=== PATIENT | female | born 1960 | race Caucasian/White ===

== ENCOUNTER 2022-01-30 14:52 | Inpatient (IN) | payer OTHER ==
[~2022-01-30] VITALS: Ht 165.1 cm; Wt 71.7 kg
[2022-01-30] MEDS ORDERED: DEXTROSE 50%-WATER 25 GM/50 ML SYRINGE IVP PRN (17:30)
[2022-01-30] MEDS ORDERED: INSULIN LISPRO 100 UNITS/ML SQ PRN (17:30)
[2022-01-30] MEDS ORDERED: ACETAMINOPHEN 650 MG/20.3 ML SOLUTION UDCUP PO PRN (17:45)
[2022-01-30 18:13] LABS: BASOPHILS % (AUTO) 0.6 % (0.0-2.0); EOSINOPHILS % (AUTO) 2.1 % (1.0-6.0); HEMATOCRIT 40.3 % (36-46); HEMOGLOBIN 13.8 g/dL (12.0-16.0); LYMPHOCYTES # (AUTO) 1.8 K/uL (1.0-4.8); LYMPHOCYTES % (AUTO) 24.4 % (22.0-44.0); MEAN CORPUSCULAR HEMOGLOBIN 32.4 pg (26.0-34.0); MEAN CORPUSCULAR HGB CONC 34.2 G/dL (31.0-37.0); MEAN CORPUSCULAR VOLUME 95 fL (80-100); MONOCYTES # (AUTO) 0.7 K/uL (0.1-1.0); MONOCYTES % (AUTO) 9.5 % (2.0-9.0); NEUTROPHILS # (AUTO) 4.8 K/uL (1.8-7.7); NEUTROPHILS % (AUTO) 63.4 % (40.0-70.0); PLATELET COUNT (AUTO) 208 K/uL (150-450); RED BLOOD CELL COUNT(AUTO) 4.27 MIL/uL (4.00-5.20); RED CELL DISTRIBUTION WIDTH 12.6 % (11.5-14.5)
[2022-01-30 18:32] LABS: ALANINE AMINOTRANSFERASE 56 U/L (12-78); ALBUMIN 3.3 g/dL (3.4-5.0); ALKALINE PHOSPHATASE 60 U/L (46-116); ANION GAP 9 mmol/L (8-16); ASPARTATE AMINOTRANSFERASE 15 U/L (15-37); BILIRUBIN,TOTAL 0.4 mg/dL (0.1-1.0); CALCIUM, TOTAL 8.8 mg/dL (8.8-10.5); CARBON DIOXIDE 25 mmol/L (22-29); CHLORIDE 103 mmol/L (98-107); CREATININE 0.79 mg/dL (0.60-1.30); GLOMERULAR FILTR. RATE CALC > 60 mL/min (>60); GLUCOSE,RANDOM 103 mg/dL (70-110); SODIUM SERUM 137 mmol/L (136-145); TOTAL PROTEIN, SERUM 6.6 g/dL (6.4-8.2); UREA NITROGEN, BLOOD 15 mg/dL (7-18)
[2022-01-30 19:48] VITALS: BP 128/67
[2022-01-30] MEDS: DOCUSATE SODIUM 100 MG CAPSULE PO SCH (20:04)
[2022-01-30] MEDS: SENNA 187 MG TABLET PO SCH (20:04)
[2022-01-30 20:12] VITALS: BP 133/89
[2022-01-30] MEDS: ACETAMINOPHEN 325 MG TABLET PO PRN (20:12)
[2022-01-30] MEDS ORDERED: PNEUMOCOCCAL VACCINE POLYVALENT 0.5 ML VIAL [PPSV23] IM. ONE (20:30)
[2022-01-30 20:31] LABS: GLUCOMETER DEV NAME(LOC) 2WR.2B; GLUCOSE,POINT OF CARE 104 MG/DL (70-110)
[2022-01-30] MEDS ORDERED: LACOSAMIDE 100 MG TABLET PO ONE (23:45)
[2022-01-30] MEDS ORDERED: LevETIRAcetam 500 MG TABLET PO ONE (23:45)
[2022-01-31 05:26] LABS: GLUCOMETER DEV NAME(LOC) 2WR.1C; GLUCOSE,POINT OF CARE 92 MG/DL (70-110)
[2022-01-31 06:46] LABS: GLUCOMETER DEV NAME(LOC) 2WR.2B; GLUCOSE,POINT OF CARE 108 MG/DL (70-110)
[2022-01-31] MEDS: ETHYL ALCOHOL 62% ANTISEPTIC NASAL SANITIZER 0.6 ML AMPUL NASAL SCH ×2 (08:26→20:30)
[2022-01-31] MEDS: DOCUSATE SODIUM 100 MG CAPSULE PO SCH ×2 (08:27→20:18)
[2022-01-31] MEDS: AmLODIPine BESYLATE 2.5 MG TABLET PO SCH (08:27)
[2022-01-31] MEDS: LevETIRAcetam 500 MG TABLET PO SCH ×2 (08:27→20:30)
[2022-01-31] MEDS: LACOSAMIDE 100 MG TABLET PO SCH ×2 (08:28→20:30)
[2022-01-31] MEDS: SERTRALINE HCL 100 MG TABLET PO SCH (08:29)
[2022-01-31] MEDS: ENOXAPARIN SODIUM 40 MG/0.4 ML PF SYRINGE SQ SCH (08:29)
[2022-01-31] MEDS: OMEPRAZOLE 20 MG CAPSULE PO SCH (08:29)
[2022-01-31] MEDS ORDERED: LACOSAMIDE 100 MG TABLET PO SCH (09:00)
[2022-01-31] MEDS ORDERED: OMEPRAZOLE 10 MG CAPSULE PO SCH (09:00)
[2022-01-31] MEDS ORDERED: LevETIRAcetam 500 MG TABLET PO SCH (09:00)
[2022-01-31 09:01] VITALS: BP 127/80
[2022-01-31 10:24] LABS: APPEARANCE,URINE CLEAR (CLEAR); BILIRUBIN,URINE NEGATIVE (NEGATIVE); GLUCOSE, URINE (UA) NEGATIVE (NEGATIVE); KETONES,URINE NEGATIVE (NEGATIVE); LEUKOCYTE ESTERASE ,URINE MODERATE (NEGATIVE); NITRATE,URINE NEGATIVE (NEGATIVE); OCCULT BLOOD,URINE NEGATIVE (NEGATIVE); PROTEIN,URINE NEGATIVE (NEGATIVE); SPECIFIC GRAVITIY, URINE 1.017 (1.003-1.030); UROBILINOGEN,URINE <=1.0 mg/dL (<=1.0)
[2022-01-31 10:58] LABS: BACTERIA,URINE Few /HPF (None Seen); RBC,URINE None Seen /HPF (0-2)
[2022-01-31 10:59] LABS: SQUAMOUS EPITHELIAL CELL,UR Moderate /LPF (None Seen)
[2022-01-31] MEDS: ACETAMINOPHEN 325 MG TABLET PO PRN ×2 (11:20→20:32)
[2022-01-31 19:55] VITALS: BP_SYST 121; BP_SYST 125; BP_DIAS 77; BP_DIAS 79
[2022-01-31] MEDS: SENNA 187 MG TABLET PO SCH (20:18)
[2022-02-01 07:01] LABS: GLUCOMETER DEV NAME(LOC) 2WR.1C; GLUCOSE,POINT OF CARE 88 MG/DL (70-110)
[2022-02-01 07:35] VITALS: BP 129/71
[2022-02-01] MEDS: ETHYL ALCOHOL 62% ANTISEPTIC NASAL SANITIZER 0.6 ML AMPUL NASAL SCH ×2 (07:51→20:24)
[2022-02-01] MEDS: DOCUSATE SODIUM 100 MG CAPSULE PO SCH ×2 (07:52→20:25)
[2022-02-01] MEDS: LevETIRAcetam 500 MG TABLET PO SCH ×2 (07:53→20:24)
[2022-02-01] MEDS: AmLODIPine BESYLATE 2.5 MG TABLET PO SCH (07:54)
[2022-02-01] MEDS: OMEPRAZOLE 20 MG CAPSULE PO SCH (07:54)
[2022-02-01] MEDS: LACOSAMIDE 100 MG TABLET PO SCH ×2 (07:54→20:27)
[2022-02-01] MEDS: SERTRALINE HCL 100 MG TABLET PO SCH (07:55)
[2022-02-01] MEDS: ENOXAPARIN SODIUM 40 MG/0.4 ML PF SYRINGE SQ SCH (07:55)
[2022-02-01] MEDS: ACETAMINOPHEN 325 MG TABLET PO PRN (15:40)
[2022-02-01] MEDS: GABAPENTIN 100 MG CAPSULE PO SCH ×2 (15:53→20:24)
[2022-02-01] MEDS: SENNA 187 MG TABLET PO SCH (20:25)
[2022-02-01 20:30] VITALS: BP 119/74
[2022-02-02] MEDS: ACETAMINOPHEN 325 MG TABLET PO PRN (01:35)
[2022-02-02 07:06] LABS: GLUCOMETER DEV NAME(LOC) 2WR.2B; GLUCOSE,POINT OF CARE 108 MG/DL (70-110)
[2022-02-02 08:02] VITALS: BP 119/73
[2022-02-02] MEDS: LACOSAMIDE 100 MG TABLET PO SCH ×2 (09:00→20:19)
[2022-02-02] MEDS: DOCUSATE SODIUM 100 MG CAPSULE PO SCH ×2 (09:00→20:32)
[2022-02-02] MEDS: LevETIRAcetam 500 MG TABLET PO SCH ×2 (09:00→20:19)
[2022-02-02] MEDS: AmLODIPine BESYLATE 2.5 MG TABLET PO SCH (09:01)
[2022-02-02] MEDS: OMEPRAZOLE 20 MG CAPSULE PO SCH (09:01)
[2022-02-02] MEDS: GABAPENTIN 100 MG CAPSULE PO SCH ×3 (09:01→20:19)
[2022-02-02] MEDS: SERTRALINE HCL 100 MG TABLET PO SCH (09:01)
[2022-02-02] MEDS: ETHYL ALCOHOL 62% ANTISEPTIC NASAL SANITIZER 0.6 ML AMPUL NASAL SCH ×2 (09:02→20:19)
[2022-02-02] MEDS: ENOXAPARIN SODIUM 40 MG/0.4 ML PF SYRINGE SQ SCH (09:02)
[2022-02-02 11:51] LABS: CHOL/HDL RATIO 7.2 (3.9-5.7); CHOLESTEROL 267 mg/dL (131-200); HDL CHOLESTEROL 37 mg/dL (40-60); TRIGLYCERIDES 461 mg/dL (15-150)
[2022-02-02] MEDS: OxyCODONE HCL 5 MG IR TABLET PO PRN ×2 (14:10→20:30)
[2022-02-02 20:30] VITALS: BP 106/60
[2022-02-02] MEDS: SENNA 187 MG TABLET PO SCH (20:32)
[2022-02-03 06:55] LABS: GLUCOMETER DEV NAME(LOC) 2WR.2B; GLUCOSE,POINT OF CARE 111 MG/DL (70-110)
[2022-02-03 07:30] VITALS: BP 124/81
[2022-02-03] MEDS: ETHYL ALCOHOL 62% ANTISEPTIC NASAL SANITIZER 0.6 ML AMPUL NASAL SCH ×2 (07:53→20:54)
[2022-02-03] MEDS: DOCUSATE SODIUM 100 MG CAPSULE PO SCH ×2 (07:53→20:55)
[2022-02-03] MEDS: AmLODIPine BESYLATE 2.5 MG TABLET PO SCH (07:54)
[2022-02-03] MEDS: GABAPENTIN 100 MG CAPSULE PO SCH ×3 (07:54→20:55)
[2022-02-03] MEDS: LevETIRAcetam 500 MG TABLET PO SCH ×2 (07:54→20:55)
[2022-02-03] MEDS: SERTRALINE HCL 100 MG TABLET PO SCH (07:55)
[2022-02-03] MEDS: LACOSAMIDE 100 MG TABLET PO SCH ×2 (07:55→20:56)
[2022-02-03] MEDS: OMEPRAZOLE 20 MG CAPSULE PO SCH (07:55)
[2022-02-03] MEDS: ENOXAPARIN SODIUM 40 MG/0.4 ML PF SYRINGE SQ SCH (07:56)
[2022-02-03] MEDS: OxyCODONE HCL 5 MG IR TABLET PO PRN (10:13)
[2022-02-03 20:30] VITALS: BP 137/79
[2022-02-03] MEDS: SIMVASTATIN 20 MG TABLET PO SCH (20:56)
[2022-02-03] MEDS: SENNA 187 MG TABLET PO SCH (20:56)
[2022-02-04 08:05] VITALS: BP 147/89
[2022-02-04] MEDS: ETHYL ALCOHOL 62% ANTISEPTIC NASAL SANITIZER 0.6 ML AMPUL NASAL SCH ×2 (08:06→20:53)
[2022-02-04] MEDS: DOCUSATE SODIUM 100 MG CAPSULE PO SCH ×2 (08:07→21:00)
[2022-02-04] MEDS: GABAPENTIN 100 MG CAPSULE PO SCH ×3 (08:08→20:53)
[2022-02-04] MEDS: LevETIRAcetam 500 MG TABLET PO SCH ×2 (08:08→20:53)
[2022-02-04] MEDS: AmLODIPine BESYLATE 2.5 MG TABLET PO SCH (08:08)
[2022-02-04] MEDS: LACOSAMIDE 100 MG TABLET PO SCH ×2 (08:09→20:53)
[2022-02-04] MEDS: ENOXAPARIN SODIUM 40 MG/0.4 ML PF SYRINGE SQ SCH (08:09)
[2022-02-04] MEDS: SERTRALINE HCL 100 MG TABLET PO SCH (08:12)
[2022-02-04] MEDS: OMEPRAZOLE 20 MG CAPSULE PO SCH (08:12)
[2022-02-04] MEDS: LIDOCAINE 5% TRANSDERMAL PATCH TD SCH (10:54)
[2022-02-04] MEDS: ACETAMINOPHEN 325 MG TABLET PO PRN ×2 (13:43→18:14)
[2022-02-04] MEDS ORDERED: SERTRALINE HCL 50 MG TABLET PO ONE (15:45)
[2022-02-04 20:00] VITALS: BP 147/90
[2022-02-04] MEDS: SIMVASTATIN 20 MG TABLET PO SCH (20:55)
[2022-02-04] MEDS: SENNA 187 MG TABLET PO SCH (21:00)
[2022-02-04] MEDS: -LIDODERM PATCH NOTE- MISC SCH (22:14)
[2022-02-05] MEDS: ACETAMINOPHEN 325 MG TABLET PO PRN (05:30)
[2022-02-05 08:20] VITALS: BP 124/75
[2022-02-05] MEDS: LIDOCAINE 5% TRANSDERMAL PATCH TD SCH (08:41)
[2022-02-05] MEDS: ENOXAPARIN SODIUM 40 MG/0.4 ML PF SYRINGE SQ SCH (08:41)
[2022-02-05] MEDS: LevETIRAcetam 500 MG TABLET PO SCH ×2 (08:42→20:23)
[2022-02-05] MEDS: LACOSAMIDE 100 MG TABLET PO SCH ×3 (08:42→21:00)
[2022-02-05] MEDS: AmLODIPine BESYLATE 2.5 MG TABLET PO SCH (08:42)
[2022-02-05] MEDS: OMEPRAZOLE 20 MG CAPSULE PO SCH (08:42)
[2022-02-05] MEDS: GABAPENTIN 100 MG CAPSULE PO SCH (08:42)
[2022-02-05] MEDS: DOCUSATE SODIUM 100 MG CAPSULE PO SCH ×2 (08:43→20:31)
[2022-02-05] MEDS: ETHYL ALCOHOL 62% ANTISEPTIC NASAL SANITIZER 0.6 ML AMPUL NASAL SCH ×2 (08:43→20:20)
[2022-02-05] MEDS ORDERED: SERTRALINE HCL 100 MG TABLET PO SCH (09:00)
[2022-02-05] MEDS: OxyCODONE HCL 5 MG IR TABLET PO PRN (10:48)
[2022-02-05 20:00] VITALS: BP 131/78
[2022-02-05] MEDS: SERTRALINE HCL 100 MG TABLET PO SCH (20:22)
[2022-02-05] MEDS: SIMVASTATIN 20 MG TABLET PO SCH ×2 (20:24→21:00)
[2022-02-05] MEDS: OxyCODONE HCL 10 MG ER TABLET PO SCH ×2 (20:28→21:00)
[2022-02-05] MEDS: -LIDODERM PATCH NOTE- MISC SCH (20:30)
[2022-02-05] MEDS: SENNA 187 MG TABLET PO SCH (20:31)
[2022-02-05] MEDS ORDERED: LORazepam 2 MG/ML VIAL IVP ONE (22:30)
[2022-02-06 07:30] VITALS: BP 137/86
[2022-02-06] MEDS: ETHYL ALCOHOL 62% ANTISEPTIC NASAL SANITIZER 0.6 ML AMPUL NASAL SCH ×2 (08:56→20:23)
[2022-02-06] MEDS: DOCUSATE SODIUM 100 MG CAPSULE PO SCH ×2 (08:57→20:23)
[2022-02-06] MEDS: AmLODIPine BESYLATE 2.5 MG TABLET PO SCH (08:58)
[2022-02-06] MEDS: LevETIRAcetam 500 MG TABLET PO SCH ×2 (08:58→20:24)
[2022-02-06] MEDS: OxyCODONE HCL 10 MG ER TABLET PO SCH ×2 (08:59→20:24)
[2022-02-06] MEDS: OMEPRAZOLE 20 MG CAPSULE PO SCH (08:59)
[2022-02-06] MEDS: LACOSAMIDE 100 MG TABLET PO SCH ×2 (08:59→20:24)
[2022-02-06] MEDS ORDERED: BUPRENORPHINE 5 MCG/HOUR PATCH TD SCH (09:00)
[2022-02-06] MEDS: ENOXAPARIN SODIUM 40 MG/0.4 ML PF SYRINGE SQ SCH (09:00)
[2022-02-06] MEDS: LIDOCAINE 5% TRANSDERMAL PATCH TD SCH (09:02)
[2022-02-06 20:00] VITALS: BP 137/81
[2022-02-06] MEDS: -LIDODERM PATCH NOTE- MISC SCH (20:23)
[2022-02-06] MEDS: SIMVASTATIN 20 MG TABLET PO SCH (20:24)
[2022-02-06] MEDS: SENNA 187 MG TABLET PO SCH (20:24)
[2022-02-06] MEDS: SERTRALINE HCL 100 MG TABLET PO SCH (20:25)
[2022-02-07 07:40] VITALS: BP 124/77
[2022-02-07] MEDS: ETHYL ALCOHOL 62% ANTISEPTIC NASAL SANITIZER 0.6 ML AMPUL NASAL SCH ×2 (08:07→19:58)
[2022-02-07] MEDS: DOCUSATE SODIUM 100 MG CAPSULE PO SCH ×2 (08:07→20:05)
[2022-02-07] MEDS: OxyCODONE HCL 10 MG ER TABLET PO SCH ×2 (08:08→19:57)
[2022-02-07] MEDS: AmLODIPine BESYLATE 2.5 MG TABLET PO SCH (08:08)
[2022-02-07] MEDS: OMEPRAZOLE 20 MG CAPSULE PO SCH (08:08)
[2022-02-07] MEDS: LevETIRAcetam 500 MG TABLET PO SCH ×2 (08:08→19:57)
[2022-02-07] MEDS: LACOSAMIDE 100 MG TABLET PO SCH ×2 (08:09→19:57)
[2022-02-07] MEDS: ENOXAPARIN SODIUM 40 MG/0.4 ML PF SYRINGE SQ SCH (08:09)
[2022-02-07] MEDS: LIDOCAINE 5% TRANSDERMAL PATCH TD SCH (08:10)
[2022-02-07] MEDS ORDERED: AMLO2.5T96 PO (11:50)
[2022-02-07] MEDS ORDERED: OXYC10TA59 PO (11:50)
[2022-02-07] MEDS ORDERED: DOCU-385 PO (11:50)
[2022-02-07] MEDS ORDERED: SIMV-43 PO (11:50)
[2022-02-07] MEDS ORDERED: OMEP20 PO (11:50)
[2022-02-07] MEDS ORDERED: SERT-440 PO (11:50)
[2022-02-07] MEDS ORDERED: LACO100 PO (11:50)
[2022-02-07] MEDS ORDERED: SENN-187 PO (11:50)
[2022-02-07] MEDS ORDERED: OXYC5 PO (11:50)
[2022-02-07] MEDS ORDERED: ACET325T51 PO (11:50)
[2022-02-07] MEDS ORDERED: LEVE500T8 PO (11:50)
[2022-02-07] MEDS ORDERED: LIDO700A30 TD (11:50)
[2022-02-07] MEDS: SERTRALINE HCL 100 MG TABLET PO SCH (19:58)
[2022-02-07] MEDS: SIMVASTATIN 20 MG TABLET PO SCH (19:58)
[2022-02-07] MEDS: -LIDODERM PATCH NOTE- MISC SCH (19:59)
[2022-02-07] MEDS: SENNA 187 MG TABLET PO SCH (20:05)
[2022-02-07 20:40] VITALS: BP 125/84
[2022-02-08 08:30] VITALS: BP 157/99
[2022-02-08] MEDS: LACOSAMIDE 100 MG TABLET PO SCH (08:51)
[2022-02-08] MEDS: LIDOCAINE 5% TRANSDERMAL PATCH TD SCH (08:51)
[2022-02-08] MEDS: ENOXAPARIN SODIUM 40 MG/0.4 ML PF SYRINGE SQ SCH (08:51)
[2022-02-08] MEDS: OxyCODONE HCL 10 MG ER TABLET PO SCH (08:52)
[2022-02-08] MEDS: OMEPRAZOLE 20 MG CAPSULE PO SCH (08:52)
[2022-02-08] MEDS: DOCUSATE SODIUM 100 MG CAPSULE PO SCH (08:52)
[2022-02-08] MEDS: LevETIRAcetam 500 MG TABLET PO SCH (08:52)
[2022-02-08] MEDS: AmLODIPine BESYLATE 2.5 MG TABLET PO SCH (08:52)
[2022-02-08] MEDS: ETHYL ALCOHOL 62% ANTISEPTIC NASAL SANITIZER 0.6 ML AMPUL NASAL SCH (08:52)
[2022-02-08] MEDS: ACETAMINOPHEN 325 MG TABLET PO PRN (10:24)
== END 2022-02-08 12:00 | disposition home health service (06) | DRG 57 ==
LOC: 2WR 16:01
PROVIDERS: ADMIT Physical Medicine & Rehabilitation; ATTEND Physical Medicine & Rehabilitation
DX: G81.94 Hemiplegia, unspecified affecting left nondominant side (principal); C71.9 Malignant neoplasm of brain, unspecified; E46 Unspecified protein-calorie malnutrition; R45.851 Suicidal ideations; R53.1 Weakness; F41.9 Anxiety disorder, unspecified; E78.00 Pure hypercholesterolemia, unspecified; G40.909 Epilepsy, unspecified, not intractable, without status epilepticus; F32.9 Major depressive disorder, single episode, unspecified; R45.1 Restlessness and agitation; R51.9 Headache, unspecified; E78.5 Hyperlipidemia, unspecified; F43.10 Post-traumatic stress disorder, unspecified; K59.00 Constipation, unspecified; E11.9 Type 2 diabetes mellitus without complications; K21.9 Gastro-esophageal reflux disease without esophagitis; I10 Essential (primary) hypertension; Z85.841 Personal history of malignant neoplasm of brain; Z92.21 Personal history of antineoplastic chemotherapy; Z92.3 Personal history of irradiation; Z68.26 Body mass index [BMI] 26.0-26.9, adult; Z79.899 Other long term (current) drug therapy
CPT/HCPCS: 73503; 80053; 80061; 81001; 82962; 83036; 85025; 87081; 87086; 90732; 92507; 92523; 92526; 93970; 97112; 97116; 97150; 97163; 97166; 97530; 97535; 99366; J1650; J2060